=== PATIENT | female | born 2000 | race Caucasian/White ===

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

== ENCOUNTER 2020-02-01 20:37 | Emergency (ER) | payer MEDICAID ==
[~2020-02-01] VITALS: Ht 157.5 cm; Wt 81.6 kg
[2020-02-01 22:05] LABS: Urine Bacteria FEW /hpf (None Seen); Urine Blood Negative /uL (Negative); Urine Mucus FEW (None Seen); Urine Specific Gravity 1.024 (1.001-1.035); Urine WBC 19 /hpf (0 - 5)
[2020-02-02 00:08] VITALS: BP 140/75
== END 2020-02-02 00:26 | disposition home or self-care (01) ==
LOC: ER 20:37
DX: O23.42 Unspecified infection of urinary tract in pregnancy, second trimester (principal); O21.8 Other vomiting complicating pregnancy; Z3A.15 15 weeks gestation of pregnancy
CPT/HCPCS: 81001